=== PATIENT | male | born 1995 | race African-American/Black ===

== ENCOUNTER 2024-02-04 13:42 | Emergency (ER) | payer OTHER ==
[2024-02-04 13:49] VITALS: BP 114/59; PULSE 65; RESP 18; TEMP 98.7; BMI 27.8
[2024-02-04] MEDS ORDERED: CYCLOBENZAPRINE HCL 10 MG TABLET (FP) ONE (15:19)
[2024-02-04] MEDS ORDERED: LIDOCAINE 4% PATCH TP ONE (15:19)
[2024-02-04] MEDS ORDERED: ACETAMINOPHEN 500 MG TABLET (FP) ONE (15:19)
[2024-02-04] MEDS ORDERED: IBUPROFEN 600 MG TABLET (FP) PO ONE (15:21)
[2024-02-04] MEDS: CYCLOBENZAPRINE HCL 10 MG TABLET (FP) PO ONE (15:25)
[2024-02-04] MEDS: LIDOCAINE 4% PATCH TP ONE (15:25)
[2024-02-04] MEDS: IBUPROFEN 600 MG TABLET (FP) PO ONE (15:25)
[2024-02-04] MEDS: ACETAMINOPHEN 500 MG TABLET (FP) PO ONE (15:25)
[2024-02-04] MEDS ORDERED: LIDOCAINE PATCH REMOVAL MC ONE (22:00)
== END 2024-02-04 16:25 | disposition home or self-care (01) ==
LOC: JERFT 13:42
DX: M25.562 Pain in left knee (principal); M54.50 Low back pain, unspecified; W01.0XXA Fall on same level from slipping, tripping and stumbling without subsequent striking against object, initial encounter; Y93.67 Activity, basketball
CPT/HCPCS: 72100-TC-FY; 73562-TC-LT-FY; 99284-25